=== PATIENT | male | born 1975 | race Caucasian/White ===

== ENCOUNTER 2017-06-17 08:00 | Emergency (ER) | payer OTHER ==
[~2017-06-17] VITALS: Ht 177.8 cm; Wt 81.7 kg
[2017-06-17] MEDS ORDERED: IMITREX4 MG/0.5 M INJECTION (08:13)
[2017-06-17] MEDS ORDERED: NEURONTIN250 MG/5 M PO (08:13)
[2017-06-17] MEDS ORDERED: SINGULAIR 10 MG10 M1 PO (08:13)
[2017-06-17] MEDS ORDERED: KEFLEX500 M1 PO (08:14)
[2017-06-17] MEDS ORDERED: BOTOX100 UNIT IM (08:14)
[2017-06-17] MEDS ORDERED: PREDNISONE 10 M10 MG PO (08:14)
[2017-06-17] MEDS ORDERED: PROAIR HFA8.5 GM INH (08:14)
[2017-06-17 09:29] VITALS: BP 111/71
== END 2017-06-17 09:31 | disposition home or self-care (01) ==
LOC: M.ERS 08:00
DX: G43.909 Migraine, unspecified, not intractable, without status migrainosus (principal)

== ENCOUNTER 2017-08-14 17:44 | Emergency (ER) | payer OTHER ==
[~2017-08-14] VITALS: Ht 175.3 cm; Wt 86.2 kg
[~2017-08-14 17:44] MED LIST: BOTOX100 UNIT IM; IMITREX4 MG/0.5 M INJECTION; KEFLEX500 M1 PO; NEURONTIN250 MG/5 M PO; PREDNISONE 10 M10 MG PO; PROAIR HFA8.5 GM INH; SINGULAIR 10 MG10 M1 PO
[2017-08-14] MEDS ORDERED: MELATONIN3 MG PO (17:59)
[2017-08-14] MEDS ORDERED: AMBIEN 5 MG TABL5 M1 PO (18:00)
[2017-08-14] MEDS ORDERED: NORCO 5-325 TA1 EAC1 PO (20:18)
[2017-08-14] MEDS ORDERED: PERIDEX 0.12%473 M1 SWISH&SPIT (20:18)
[2017-08-14] MEDS ORDERED: KEFLEX500 M1 PO (20:18)
[2017-08-14 20:38] VITALS: BP 117/74
== END 2017-08-14 20:42 | disposition home or self-care (01) ==
LOC: M.ERS 17:44
DX: S02.5XXA Fracture of tooth (traumatic), initial encounter for closed fracture (principal); S01.511A Laceration without foreign body of lip, initial encounter; S50.02XA Contusion of left elbow, initial encounter; G43.909 Migraine, unspecified, not intractable, without status migrainosus; W07.XXXA Fall from chair, initial encounter; Y93.89 Activity, other specified; Y92.89 Other specified places as the place of occurrence of the external cause; Y99.8 Other external cause status